=== PATIENT | female | born 1970 | race Caucasian/White ===

== ENCOUNTER 2017-05-12 12:31 | Emergency (ER) | payer MEDICAID ==
[~2017-05-12] VITALS: Ht 165.1 cm; Wt 79.9 kg
[~2017-05-12 12:31] MED LIST: ACYC-114 PO; CIPR500T87 PO; CITA20TA9 PO; CLIN300C8 PO; DEXA4TAB PO; DIVA500T2 PO; FLUC40SU PO; IBUP-1222 PO; MIRT15TA4 PO; NICO1PAT16 TD; OMEP-110 PO; TRAZ100T15 PO; ZIPR40CA2 PO; ZIPR80CA2 PO; ZOLP-413 PO
[2017-05-12 12:33] VITALS: BP 138/87
[2017-05-12] MEDS ORDERED: ONDANSETRON ODT 4 MG ONE (13:24)
[2017-05-12] MEDS ORDERED: ONDANSETRON ODT 4 MG PO ONE (13:30)
== END 2017-05-12 13:55 | disposition home or self-care (01) ==
LOC: ED 13:30
DX: S00.93XA Contusion of unspecified part of head, initial encounter (principal); K02.9 Dental caries, unspecified; I10 Essential (primary) hypertension; W19.XXXA Unspecified fall, initial encounter; Y93.89 Activity, other specified; Y99.8 Other external cause status; Y92.488 Other paved roadways as the place of occurrence of the external cause
CPT/HCPCS: 70450; 99284; Q0162

== ENCOUNTER 2018-10-07 12:44 | Emergency (ER) | payer MEDICAID ==
[~2018-10-07] VITALS: Ht 165.1 cm; Wt 91.0 kg
[~2018-10-07 12:44] MED LIST changes: +NICO-487 TD; -NICO1PAT16 TD; +TRAZ-137 PO; -TRAZ100T15 PO
[2018-10-07 14:00] VITALS: BP 130/65
--- NOTE | 2018-10-07 14:00 | NUR ---
Patient/Caregiver given discharge instructions and they have confirmed that they understand the instructions. Patient ambulatory with steady gait. Pt. has her prescriptions in her hand.
== END 2018-10-07 14:04 | disposition home or self-care (01) ==
LOC: ED 13:49
DX: K02.9 Dental caries, unspecified (principal); F25.9 Schizoaffective disorder, unspecified; I10 Essential (primary) hypertension; F17.200 Nicotine dependence, unspecified, uncomplicated
CPT/HCPCS: 99283

== ENCOUNTER 2018-10-15 16:42 | Emergency (ER) | payer MEDICAID ==
[~2018-10-15] VITALS: Ht 154.9 cm; Wt 92.0 kg
--- NOTE | 2018-10-15 17:13 | NUR ---
PT IN SCAN AT THIS TIME
--- NOTE | 2018-10-15 17:53 | NUR ---
bedside report to rn davi, pt care transferred at this time
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
[2018-10-15] MEDS ORDERED: IBUPROFEN 200 MG TABLET PO ONE (18:30)
[2018-10-15] MEDS ORDERED: ONDANSETRON ODT 4 MG PO ONE (18:30)
[2018-10-15] MEDS ORDERED: MECLIZINE CHEWABLE 25 MG TAB PO ONE (18:30)
[2018-10-15 18:41] LABS: CULTURE INDICATED? YES; HCG UR SG 1.032 (1.003-1.030); MICROSCOPIC INDICATED
[2018-10-15] MEDS ORDERED: MECLIZINE CHEWABLE 25 MG TAB ONE (18:59)
[2018-10-15] MEDS ORDERED: IBUPROFEN 200 MG TABLET ONE (18:59)
[2018-10-15] MEDS ORDERED: ONDANSETRON ODT 4 MG ONE (18:59)
[2018-10-15 19:06] VITALS: BP 119/52
--- NOTE | 2018-10-15 19:07 | NUR ---
PT RESTING ON GURNEY, MONITORS IN PLACE, MEDICATED PER NOV, SW AT BEDSIDE, CALL LIGHT WITHIN REACH.
--- NOTE | 2018-10-15 19:40 | NUR ---
LATE ENTRY 1924- PROVIDED PT WITH MEAL, WARM SOCKS.
== END 2018-10-15 20:11 | disposition home or self-care (01) ==
LOC: ED 19:45
DX: S06.0X0A Concussion without loss of consciousness, initial encounter (principal); N30.00 Acute cystitis without hematuria; F25.9 Schizoaffective disorder, unspecified; I10 Essential (primary) hypertension; Z87.19 Personal history of other diseases of the digestive system; Z98.890 Other specified postprocedural states; Y04.8XXA Assault by other bodily force, initial encounter; Y93.89 Activity, other specified; Y92.89 Other specified places as the place of occurrence of the external cause; Y99.8 Other external cause status
CPT/HCPCS: 70450; 71046; 72125; 81001; 81025; 87077; 87086; 87186; 99284; Q0162